=== PATIENT | male | born 1945 | race Caucasian/White ===

== ENCOUNTER → 2022-10-28 10:19 | Outpatient (CLI) | payer BC, SELFPAY ==
--- NOTE | 2022-10-28 | DI.CT.S_ITS ---
PROCEDURE: CT ANGIO HEAD AND NECK INDICATIONS: CEREBRAL INFARCTION TECHNIQUE: Pre-contrast 4.5 mm thick sections acquired from the foramen magnum to the vertex. After the administration of intravenous contrast, 1 mm thick sections acquired from the aortic arch through the [place]. Post-contrast 4.5 mm thick sections then re-acquired from the foramen magnum to the vertex. 3-dimensional xbynkke-lfbxrprvl-bcysdrqnpv (MIP) and/or volume rendering reformats were acquired of the central intracranial vasculature and neck separately. For radiation dose reduction, the following was used: automated exposure control, adjustment of mA and/or kV according to patient size. COMPARISON: None. FINDINGS: Image quality: Excellent. BRAIN: The ventricular system and cortical sulci demonstrate atrophy, consistent for the patient's stated age. There are areas of hypodensity within the periventricular and subcortical white matter. There is no acute intra-or extra axial fluid collection. No acute hemorrhage, mass lesion or midline shift. Brainstem is unremarkable. Globes are symmetrical. Sinuses consists versus polyps. No fluid levels. Osseous structures are intact. HEAD CT ANGIOGRAPHY: Anterior circulation: Intracranial internal carotid arteries are normal in size and flow. The flow within the paired anterior cerebral arteries is normal and symmetric. The flow within the middle cerebral arteries is normal and symmetric. The anterior communicating artery is seen. No aneurysms are seen. Posterior circulation: Vertebral arteries are codominant. Visualized portions of the vertebral arteries demonstrate normal caliber, and join to form a normal appearing basilar artery. Flow within the posterior cerebral arteries is normal and symmetric. No aneurysms are seen. NECK CT ANGIOGRAPHY: Carotid system: The great vessels demonstrate a conventional anatomy as they arise from the aortic arch. The origins of the common carotid arteries appear patent. The common carotid arteries demonstrate normal caliber and courses. The bifurcation regions are both widely patent. The internal carotid arteries demonstrate normal calibers and courses. Posterior circulation: The origins of the vertebral arteries both appear widely patent. The more superior extracranial portions of both vertebral arteries also demonstrate normal courses and calibers. They join to form a normal appearing basilar artery. Soft tissues: Visualized neck soft tissues demonstrate no suspicious abnormalities. Bones: No suspicious bony lesions. Visualized cervical spine appears normally aligned. IMPRESSION: 1. No acute intracranial process. 2. Mild to moderate atrophy and chronic microvascular ischemic changes. 3. No areas of hemodynamically significant stenosis, vascular occlusion or aneurysmal dilation within the anterior circulation. 4. No areas of hemodynamically significant stenosis, vascular occlusion or aneurysmal dilation within the posterior circulation. 5. No areas of hemodynamically significant stenosis, vascular occlusion or aneurysmal dilation within the neck vasculature. Any quantitative measurements of stenosis were performed using NASCET criteria. Dictated by: Amelia Saldaña M.D. on 10/28/2022 at 16:06 Approved by: Amelia Saldaña M.D. on 10/28/2022 at 16:10
--- NOTE | 2022-10-28 | DI.US.S_ITS ---
PROCEDURE: US CAROTID DOPPLER BI INDICATIONS: CEREBRAL INFARCTION TECHNIQUE: Color and pulse Doppler interrogation was performed of both carotid systems, with image documentation and velocity measurements. COMPARISON: [facility], CT, CT ANGIO HEAD AND NECK, 10/28/2022, 11:32. FINDINGS: Stenosis calculations are based on SRU (Society of Radiologists in Ultrasound) criteria. The flow velocities and the arterial waveforms are normal within both carotid arterial systems. The estimated degree of internal carotid artery stenosis is less than 50%. Antegrade flow is confirmed within both vertebral arteries. IMPRESSION: No hemodynamically significant stenosis is seen. Dictated by: Bryan Stauffer M.D. on 10/28/2022 at 11:01 Approved by: Bryan Stauffer M.D. on 10/28/2022 at 11:04
--- NOTE | 2022-10-28 | DI.ECHO.S_ITS ---
Version: 1 Study ID: [id number] [place] [address] Name: MILE VILLATORO Study Date: 10/28/2022, 10: 36 AM : 1945 BP: 117 / 79 mmHg Gender: Male Height: 67.5 in Age: 77 Years Weight: 162 lb BSA: 1.86 mA? Ordering: YOLIS WALSH Referring: YOLIS WALSH Clinician: Joanne Higginbotham Reason For Study: CVA History: Summary Statements Normal sinus rhythm. Normal LV size, wall thickness, wall motion and LV systolic function. EF is 55-60%. Stage I diastolic dysfunction. Normal chamber sizes. No significant valvular abnormalities. No source of embolism found. No prior study available for comparison. Procedure: A two-dimensional transthoracic echocardiogram with color flow and Doppler was performed. The study quality was technically good. There is no prior echocardiogram noted for this patient. The patient was in sinus rhythm with heart rates between 64-75 bpm during the exam. Left Ventricle: The ejection fraction is estimated to be 55-60%. The left ventricle is normal in size and wall thickness. Right Ventricle: The right ventricular systolic function is normal. The right ventricle is mildly dilated. Atria: There is no Doppler evidence for an interatrial shunt. The left atrial size is normal. Right atrial size is normal. Mitral Valve: There is mild mitral regurgitation. The mitral valve is normal in structure and function. Aortic Valve: There is trace aortic regurgitation. There is no aortic valve stenosis. The aortic valve is trileaflet. The aortic valve opens well. Tricuspid Valve: There is mild tricuspid regurgitation. The right ventricular systolic pressure is estimated to be at least 18 mmHg based on an estimated right atrial pressure of 3 mm Hg. The tricuspid valve is normal in structure and function. Pulmonic Valve: There is mild pulmonic regurgitation. The pulmonic valve leaflets are thin and pliable; valve motion is normal. Great Vessels: The dimensions of the ascending aorta are normal. The aortic root is normal size. The IVC is of normal diameter and collapses greater than 50% with a sniff. This suggests a low right atrial pressure of 3 mm Hg. Pericardium/ Pleura: There is no pericardial effusion. There is no pleural effusion. 2D and M-Mode Measurements and Calculations LVIDd: 4.3 cm LVOT diam: 2.23 cm LVIDs: 2.9 cm Ao root diam: 3.9 cm IVSd: 0.82 cm asc Aorta Diam: 3.3 cm LVPWd: 0.90 cm Ao Arch Diam (Prox Trans): 2.8 cm LV jones. diameter/BSA (cm/m^2): 2.33 LV sys. 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 IVC diam: 0.97 cm LA A2 area: 18.6 recycling technician? RA area: 15.7 recycling technician? LA length (vol): 4.7 cm RA long axis: 5.0 cm LA vol: 53.0 ml RA vol: 41.6 ml LA vol index: 28.5 ml/mA? RA : 22.4 ml/mA? Doppler Measurements and Calculations Ao V2 max: 115.5 cm/sec LVOT Max Rosas: 115.4 cm/sec Ao V2 mean: 75.6 cm/sec LV V1 max P.3 mmHg Ao V2 VTI: 22.2 cm LV V1 VTI: 23.6 cm Ao max P.3 mmHg SV(LVOT): 92.5 ml Ao mean P.7 mmHg SIA(I,D): 4.2 recycling technician? SIA(V,D): 3.9 recycling technician? SIA indexed to BSA (cm^2/m^2): 2.25 sev ratio: 1.07 MV E max rosas: 43.8 cm/sec MV dec time: 0.21 sec MV A max rosas: 72.9 cm/sec MV E/A: 0.60 Med Peak E' Rosas: 5.5 cm/sec Lat Peak E' Rosas: 8.6 cm/sec E/e' average: 6.6 TR max rosas: 195.0 cm/sec PA mean P.02 mmHg TR max P.2 mmHg PA V2 max: 93.9 cm/sec Electronically signed by: Yolis Walsh M.D. 11/01/2022, 1: 04 PM
== END ==
PROVIDERS: Referring Provider Internal Medicine; Visit Provider Internal Medicine
DX: I63.9 Cerebral infarction, unspecified (principal); I08.1 Rheumatic disorders of both mitral and tricuspid valves
CPT/HCPCS: 70496; 70498; 93306; 93880; Q9967

== ENCOUNTER → 2025-06-27 09:38 | Outpatient (CLI) | payer BC, SELFPAY | LOC: PHYS 09:39 | PROVIDERS: Family Provider Physician Assistant Medical; PCP Physician Assistant Medical; Referring Provider Orthopaedic Surgery; Visit Provider Orthopaedic Surgery | DX: R20.2 Paresthesia of skin (principal) | CPT/HCPCS: 95886; 95909 ==